=== PATIENT | male | born 1995 | race Caucasian/White ===

== ENCOUNTER 2022-03-30 17:06 | Observation (INO) ==
[2022-03-30 21:09] VITALS: TEMP 97.5
[2022-03-30] MEDS ORDERED: Naloxone 0.4 MG/ML INJ IVP PRN (21:17)
[2022-03-30] MEDS ORDERED: Acetaminophen 325 MG TABLET PO PRN (21:17)
[2022-03-30] MEDS ORDERED: Ondansetron 4 MG/2 ML VIAL IVP PRN (21:17)
[2022-03-30] MEDS ORDERED: Nicotine 21 MG PATCH.TD24 TD SCH (21:30)
[2022-03-30] MEDS: 0.9 % Sodium Chloride 1,000 ML IVC SCH (22:03)
[2022-03-31] MEDS ORDERED: Ketorolac 30 MG/ML VIAL IVP ONE (01:38)
[2022-03-31 04:47] LABS: Hematocrit 42.5 % (37.5-50.1); Hemoglobin 13.6 g/dL (12.9-16.9); Mean Corpuscular Hemoglobin 29.1 pg (28.0-33.3); Mean Platelet Volume 9.8 fL (9.4-12.4); Platelet Count 290 K/mcL (140-400); Red Blood Count 4.67 M/mcL (4.19-5.50); Red Cell Distribution Width 13.3 % (11.5-14.5); White Blood Count 9.7 K/mcL (4.3-11.1)
[2022-03-31 05:13] LABS: BUN/Creatinine Ratio 8 (6-26); Blood Urea Nitrogen 6 mg/dL (6-20); Calcium 7.8 mg/dL (8.6-10.3); Carbon Dioxide 21 mEq/L (23-29); Chloride 107 mEq/L (98-107); Chol/HDL Ratio 2.5 (0-4.9); Cholesterol 111 mg/dL (< 200); Glucose 135 mg/dL (70-105); HDL Cholesterol 45 mg/dL (40-59); LDL Cholesterol,Calculated 53 mg/dL (< 100); Magnesium 1.6 mg/dL (1.6-2.6); Osmolality,Calculated 280 (280-300); Potassium 3.7 mEq/L (3.5-5.1); Sodium 135 mEq/L (136-145); Triglycerides 67 mg/dL (< 150); Troponin I < 0.03 ng/mL (< 0.04); eGFR For African Americans > 60 (> 60); eGFR For Non-African Americans > 60 (> 60)
[2022-03-31] MEDS: 0.9 % Sodium Chloride 1,000 ML IVC SCH (05:31)
[2022-03-31 06:13] LABS: Estimated Average Glucose 111 mg/dl; Hemoglobin A1C 5.5 %
[2022-03-31 06:47] VITALS: BP 153/90; PULSE 47; O2SAT 99
[2022-03-31 11:50] LABS: Albumin 3.9 g/dL (3.5-5.7); Albumin/Globulin Ratio 2.1 (1.1-2.2); Bilirubin,Direct 0.1 mg/dL (0.0-0.2); Bilirubin,Indirect 0.3 mg/dL (0.0-1.0); Bilirubin,Total 0.4 mg/dL (0.3-1.0); Globulin 1.9 g/dL (2.4-3.5); Total Protein 5.8 g/dL (6.4-8.9)
== END 2022-03-31 13:50 | disposition home or self-care (01) ==
LOC: 3BNU → SUATTDRO 20:05
PROVIDERS: ADMIT Family Medicine; ATTEND Nurse Practitioner